=== PATIENT | male | born 1965 | race Caucasian/White ===

== ENCOUNTER 2016-08-27 11:35 | Emergency (ER) | payer OTHER ==
[~2016-08-27] VITALS: Ht 167.6 cm; Wt 86.3 kg
[~2016-08-27 11:35] MED LIST: ALOCRIL5 ML BOTH EYES; APAP325 M1 PO; ASCORBIC ACID500 M3 PO; ATIVAN1 M1 PO; ATIVAN1 MG PO; Ascorbic Acid,Ester- PO; BACITRACIN BOTH EYES; BENADRYL25 MG PO; CLARITIN10 MG PO; DECONGESTANT30 MG PO; DEPAKOTE ER (E500 MG PO; DEPAKOTE ER250 MG PO; DEPAKOTE ER500 MG; DEPAKOTE125 MG PO; DEPAKOTE500 MG PO; FLONASE16 GM NS; FOLIC ACID1 MG PO; FOLVITE1 MG PO; GUAIFENESIN DM236 ML PO; HALCION0.25 MG PO; LOPID600 M1 PO; LOPID600 MG PO; MOTRIN400 M1 PO; MULTIVITAMIN1 EAC2 PO; NOSE SPRAY30 ML NS; POLYMYXIN B BOTH EYES; POLYSPORIN30 GM PO; PROZAC20 M1 PO; PROZAC20 MG PO; SINGULAIR10 MG PO; SPECTAZOLE15 GM PO; THERAGRAN1 TABLET PO; TRILEPTAL300 MG; TRILEPTAL300 MG PO; TRILEPTAL600 MG PO; VIMPAT100 MG PO; VIMPAT50 MG PO; VITAMIN C500 M1 PO; ZYPREXA10 MG PO; ZYRTEC10 M2 PO
[2016-08-27 12:42] LABS: HEMATOCRIT 37.6 % (38.0-50.0); MCH 29.9 PG (29.0-34.0); MCHC 34.8 G/DL (30.0-36.0); MCV 85.8 FL (86-99); MEAN PLAT.VOLUME 9.5 uM^3 (9.0-12.4); PLATELET COUNT 130 K/uL (156-360); RED BLOOD COUNT 4.38 M/uL (4.00-5.50); WHITE BLOOD COUNT 6.5 K/uL (4.1-10.2)
[2016-08-27 12:52] LABS: CHLORIDE 99 mEq/L (99-109); POTASSIUM 3.9 mEq/L (3.7-5.4); SODIUM 132 mEq/L (136-147)
[2016-08-27 12:53] LABS: GLUCOSE 85 mg/dL (70-99)
[2016-08-27 12:55] LABS: ANION GAP 8 MEQ/L (2-14)
[2016-08-27 12:57] LABS: GFR ESTIMATE (CALCULATED) > 59 mL/min/
[2016-08-27 12:58] LABS: UREA NITROGEN (BUN) 10 mg/dL (9-23)
[2016-08-27 13:00] VITALS: BP 123/74
== END 2016-08-27 13:00 | disposition home or self-care (01) ==
LOC: EME → EDBD 11:35 → EME 11:35
PROVIDERS: Emergency Medicine
DX: G40.909 Epilepsy, unspecified, not intractable, without status epilepticus (principal); F79 Unspecified intellectual disabilities
CPT/HCPCS: 70450; 80048; 80164; 81003; 85027; 99281; 99284; J7030

== ENCOUNTER → 2017-10-12 | Outpatient (CLI) | payer OTHER | END | disposition home or self-care (01) | DX: R13.10 Dysphagia, unspecified (principal) | CPT/HCPCS: 92611 GN; G8996 GN; G8997 GN; G8998 GN ==